=== PATIENT | female | born 1955 | race Caucasian/White ===

== ENCOUNTER 2025-09-29 13:26 | Inpatient (IN) | payer OTHER ==
[~2025-09-29] VITALS: Ht 170.2 cm; Wt 76.3 kg
--- NOTE | ~2025-09-29 | EKG ---
[facility] [address] [facility], [place] [address] Draft EKG completed, results pending confirmation PATIENT NAME: MEHNAZ QUARLES CLAUDIA Electrocardiogram DATE OF : 53 PHYSICIAN: PRELIMINARY REPORT #: [id number] REPORT IS CONFIDENTIAL AND NOT TO BE RELEASED WITHOUT AUTHORIZATION
[~2025-09-29 13:26] MED LIST: SEVOFLURANE 250 ML BTL INH ONE
[2025-09-29 14:03] LABS: MCH 29.3 PG (25.6-32.2); MCHC 32.9 g/dL (32.2-35.5); MCV 89.1 fL (79.4-94.8); RBC 4.40 M/uL (3.93-5.22)
[2025-09-29] MEDS ORDERED: SODIUM CHLORIDE 0.9% 1,000 ML IV ONE (14:15)
[2025-09-29] MEDS ORDERED: HYDROmorphone HCL 1 MG/ML SYR IV PRN (14:15)
[2025-09-29 14:24] LABS: BANDS, MANUAL DIFF 5; LYMPHOCYTES, MANUAL DIFF 3; MONOCYTES, MANUAL DIFF 3; NEUTROPHILS, MANUAL DIFF 89
[2025-09-29 14:29] LABS: ALT (SGPT) 19.0 U/L (14-59); AST (SGOT) 16.0 U/L (15-37); GLOMERULAR FILTRATION RATE,EST 18.0 mL/min (>60); PROTEIN, TOTAL 7.0 g/dL (6.4-8.2); UREA NITROGEN 53.0 mg/dL (7-18)
[2025-09-29] MEDS ORDERED: SODIUM CHLORIDE 0.9% 1,000 ML IV SCH (15:00)
[2025-09-29] MEDS ORDERED: DEXTROSE 5% IV ONE (15:15)
[2025-09-29] MEDS ORDERED: MEROPENEM IV ONE (15:15)
[2025-09-29 15:23] LABS: BLOOD/HGB, URINE SMALL (Negative); KETONE, URINE NEGATIVE (Negative); LEUK ESTERASE, URINE NEGATIVE (negative); NITRITE, URINE NEGATIVE (negative)
[2025-09-29 15:29] LABS: EPITHELIAL CELLS, URINE SQUAMOUS 2+ /lpf (0-1+)
[2025-09-29 15:30] LABS: BACTERIA, URINE 1+ /hpf (negative); CASTS, URINE NONE SEEN \\lpf; CRYSTALS, URINE NONE SEEN (0-1+); REFLEX CULTURE, URINE No (No)
[2025-09-29] MEDS ORDERED: MEROPENEM IV SCH (16:15)
[2025-09-29] MEDS ORDERED: KETOROLAC TROMETHAMINE 30 MG/ML VIAL IV PRN (16:15)
[2025-09-29] MEDS ORDERED: LACTATED RINGER'S 1,000 ML IV SCH (16:15)
[2025-09-29] MEDS ORDERED: DEXTROSE 5% IV SCH (16:15)
[2025-09-29] MEDS ORDERED: MORPHINE SULFATE 10 MG/ML VIAL IV PRN (16:15)
[2025-09-29] MEDS ORDERED: fentaNYL citrate 100 MCG/2 ML VIAL ONE (16:53)
[2025-09-29] MEDS ORDERED: LIDOCAINE HCL 2% 5 ML SDV ONE (16:54)
[2025-09-29] MEDS ORDERED: DEXAMETHASONE SOD PHOS 4 MG/ML VIAL ONE (16:54)
[2025-09-29] MEDS ORDERED: ROCURONIUM BROMIDE 50 MG/5 ML SYR ONE (16:54)
[2025-09-29] MEDS ORDERED: ACETAMINOPHEN 1,000 MG/100 ML VIAL ONE (16:59)
[2025-09-29] MEDS ORDERED: SODIUM CHLORIDE 0.9% 20 ML IV ONE (16:59)
[2025-09-29] MEDS ORDERED: METOPROLOL TARTRATE 5 MG/5 ML VIAL ONE ×2 (17:02)
[2025-09-29] MEDS ORDERED: PHENYLEPHRINE HCL IN 0.9% NACL 1 MG/10 ML SYR ONE (17:25)
[2025-09-29] MEDS ORDERED: VASOPRESSIN 20 UNITS/ML VIAL ONE (17:27)
[2025-09-29] MEDS ORDERED: POTASSIUM CHLORIDE 10 MEQ/100 ML BAG IV SCH ×3 (17:30→21:15)
[2025-09-29] MEDS ORDERED: POTASSIUM CHLORIDE 20 MEQ in DEXTROSE 5% 250 ML IV ONE (17:30)
[2025-09-29] MEDS ORDERED: SUGAMMADEX SODIUM 200 MG/2 ML ML ONE (17:31)
--- NOTE | 2025-09-29 17:57 | HP ---
[facility] [address] [place], [place] [address] Signed ADMISSION DATE: 09/29/2025 REASON FOR ADMISSION: Intra-abdominal abscess with possible perforated appendicitis. 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 She has been injured in her line of work as well. She is accompanied by her . On about September, she began having vague abdominal pain, which worsened and migrated to the lower abdomen. It has worsened and now is in the right lower abdomen. She presented to the emergency room as she has not been able to eat well over the past few days. She had decreased urinary output and has had vomiting. She has had some loose bowel movements, but no blood per rectum. She [facility] in the morning and was referred directly to the emergency room given her symptoms. Evaluation by Dr. Ingram was undertaken, which included clinical examination finding marked tenderness in the lower abdomen. A CT scan which showed multiple fluid and gas filled mildly dilated loops of small bowel without sign of bowel obstruction, gallstones with a somewhat distended gallbladder and probably acutely perforated appendix with multiple small collections of fluid and gas scattered in the right abdomen and pelvis. She was concurrently noted to have elevated white count of 15.1, hematocrit of 39.2, and platelets of 260,000. PAST MEDICAL HISTORY: Notable for abdominal hysterectomy and ovariectomy for endometriosis. She has had right shoulder operation and neck surgery, both related to violent episodes with students. She also has lost a partial bridge on her right mouth also related to her work with violent students. She denies any alcohol use or drug use and does not smoke. SOCIAL HISTORY: She is . She is accompanied by her and works as a [employer] with dysfunctional [employer] students. REVIEW OF SYSTEMS: She denies any shortness of breath or chest pain. Has no general symptoms suggestive of angina. She has no dysphagia or hematuria. PHYSICAL EXAMINATION: GENERAL: A pleasant white woman who does not look systemically toxic despite my Electronically Signed By: MANUEL VIVAS MD 09/29/25 1757 PATIENT NAME: MEHNAZ QUARLES HISTORY AND PHYSICAL DATE OF : 53 REPORT #: [id number] PHYSICIAN: MANUEL VIVAS MD PCP: RONIT LOONEY PAC REPORT IS CONFIDENTIAL AND NOT TO BE RELEASED WITHOUT AUTHORIZATION [facility] [address] [place], [place] [address] Signed concerns upon reviewing her chart. VITAL SIGNS: Temperature is 97.5, pulse 101, blood pressure 118/60, pulse oximetry 100% on room air. NECK: Trachea is midline. There is fullness to the lower neck, but no thyromegaly per se. She has no hoarseness. CHEST: Clear bilaterally. HEART: Regular without murmur. She has a pectus excavatum deformity. ABDOMEN: Nondistended. Rovsing sign is positive. There is marked tenderness at McBurney's point as well. There is no palpable mass. EXTREMITIES: Show no clubbing, cyanosis, or edema. LABORATORY STUDIES: As previously noted, showed a white count of 15.1, hematocrit 39.2, and platelets 260,000. Potassium low at 3.1, creatinine 2.78, bicarb 25, alkaline phosphatase is 93, total protein 7.0, albumin 2.8, globulin 4.2. I reviewed her CT scan. Notable is a somewhat distended gallbladder with large gallstones, but no sign of pericholecystic fluid or thickening of the gallbladder wall. The deformity of the sternum and upper abdomen is noted. In the lower abdomen are areas of fluid collection between bowel loops. In the region of the cecum are inflammatory changes, which are notable. The appendix is markedly dilated and markedly thickened as well. I do not detect a radiodense fecalith. The terminal ileum appears normal. There is some GI contrast locally. An appendicolith is noted on one slice that is radiodense after all. The patient has acute appendicitis, possibly with perforation and interloop fluid collections or abscess. Gallstones are noted without obvious evidence of cholecystitis proper and she has no tenderness in the right upper quadrant at all. Fluid resuscitation has been initiated by Dr. Ingram and in concert with our consultation meropenem 500 mg intravenously has been started. Creatinine is elevated, but was said to have been normal only a month or two ago after physical exam with her primary provider, Dr. García. I can assume that her progressive dehydration, inflammatory issues and so forth have caused a prerenal renal failure and elevated creatinine on that basis. Aggressive fluid resuscitation is underway at this time. A 12-lead EKG has been ordered, though she has no overt evidence of coronary issue at this time. I have recommended laparoscopy with laparoscopic appendectomy and drainage of abdomen if possible. She may require an open operation, we discussed this in great detail. Drains almost certainly will be placed in her situation. Additionally, we discussed the possibility this may not represent appendicitis but rather some other problem for which additional treatment would be needed. As regard to the gallbladder, it is somewhat dilated and has large stones, but does not appear to be the primary problem today. It would be unusual that concurrent cholecystectomy would be undertaken, but whatever is Electronically Signed By: MANUEL VIVAS MD 09/29/25 8438 PATIENT NAME: MEHNAZ QUARLES HISTORY AND PHYSICAL DATE OF : 53 REPORT #: [id number] PHYSICIAN: MANUEL VIVAS MD PCP: RONIT LONOEY PAC REPORT IS CONFIDENTIAL AND NOT TO BE RELEASED WITHOUT AUTHORIZATION [address] [place], [place] [address] Signed causing her problem will be diagnosed and so far as possible. She agrees with this. MD LATASHA Mcbride/MODL /[id number] cc: MD Dr. Juan Jose Akins Copies: BHARGAV GARCÍA MD ~ Electronically Signed By: MANUEL VIVAS MD 09/29/25 1757 PATIENT NAME: MEHNAZ QUARLES HISTORY AND PHYSICAL DATE OF : 53 REPORT #: [id number] PHYSICIAN: MANUEL VIVAS MD PCP: RONIT LOONEY PAC REPORT IS CONFIDENTIAL AND NOT TO BE RELEASED WITHOUT AUTHORIZATION
[2025-09-29 18:13] LABS: BASOPHILS 0.6 % (0.1-1.2); EOSINOPHILS 0.6 % (0.7-5.8); LYMPHOCYTES 3.7 % (19.3-51.7); MCH 29.0 PG (25.6-32.2); MCHC 32.4 g/dL (32.2-35.5); MCV 89.7 fL (79.4-94.8); MONOCYTES 3.4 % (4.7-12.5); NEUTROPHILS 91.3 % (34.0-71.1); RBC 4.27 M/uL (3.93-5.22)
[2025-09-29 18:45] VITALS: BP 102/60
[2025-09-29 18:46] LABS: ALT (SGPT) 16.0 U/L (14-59); AST (SGOT) 15.0 U/L (15-37); GLOMERULAR FILTRATION RATE,EST 23.0 mL/min (>60); PROTEIN, TOTAL 5.7 g/dL (6.4-8.2); TSH, 3RD GENERATION 1.163 uIU/mL (0.358-3.740); UREA NITROGEN 49.0 mg/dL (7-18)
[2025-09-29] MEDS ORDERED: DIGOXIN 500 MCG/2 ML AMP IV ONE ×2 (19:00→23:00)
--- NOTE | 2025-09-29 19:12 | EKG ---
[facility] [address] [facility] [place], [place] [address] Signed Normal sinus rhythm Nonspecific ST abnormality Abnormal ECG No previous ECGs available Confirmed by Donal Moraes DO ([id number]) on 09/29/2025 7:12:33 PM Electronically Signed By: DONAL MORAES DO 09/29/251911 PATIENT NAME: MEHNAZ QUARLES Electrocardiogram DATE OF : 53 PHYSICIAN: DONAL MORAES DO REPORT #: [id number] REPORT IS CONFIDENTIAL AND NOT TO BE RELEASED WITHOUT AUTHORIZATION
[2025-09-29 20:26] VITALS: BP 99/56
[2025-09-29 21:00] VITALS: BP 106/60
[2025-09-29] MEDS ORDERED: FAMOTIDINE 20 MG/ 2 ML VIAL IV SCH ×2 (21:00)
[2025-09-29] MEDS ORDERED: MAGNESIUM SULFATE 2 GM/50 ML BAG IV ONE (21:30)
[2025-09-29] MEDS ORDERED: POTASSIUM CHLORIDE 10 MEQ TABCR PO ONE (21:30)
[2025-09-29 22:00] VITALS: BP 109/62
[2025-09-29 23:00] VITALS: BP 100/59
[2025-09-30] VITALS (19 sets, daily range): BP systolic 92–134; BP diastolic 48–76
[2025-09-30 03:25] LABS: GLOMERULAR FILTRATION RATE,EST 42.0 mL/min (>60); UREA NITROGEN 43.0 mg/dL (7-18)
[2025-09-30] MEDS ORDERED: DEXTROSE 5% IV SCH ×2 (04:00)
[2025-09-30] MEDS ORDERED: MEROPENEM IV SCH ×2 (04:00)
[2025-09-30 06:19] LABS: MCH 28.6 PG (25.6-32.2); MCHC 31.6 g/dL (32.2-35.5); MCV 90.6 fL (79.4-94.8); RBC 3.84 M/uL (3.93-5.22)
[2025-09-30 06:45] LABS: GLOMERULAR FILTRATION RATE,EST 45.0 mL/min (>60); UREA NITROGEN 42.0 mg/dL (7-18)
[2025-09-30 06:55] LABS: BANDS, MANUAL DIFF 4; LYMPHOCYTES, MANUAL DIFF 2; MONOCYTES, MANUAL DIFF 4; NEUTROPHILS, MANUAL DIFF 90
[2025-09-30] MEDS ORDERED: ACETAMINOPHEN 1,000 MG/100 ML VIAL ONE (10:28)
[2025-09-30] MEDS ORDERED: LIDOCAINE HCL 2% 5 ML SDV ONE (10:28)
[2025-09-30] MEDS ORDERED: DEXAMETHASONE SOD PHOS 4 MG/ML VIAL ONE (10:28)
[2025-09-30] MEDS ORDERED: ROCURONIUM BROMIDE 50 MG/5 ML SYR ONE (10:28)
[2025-09-30] MEDS ORDERED: KETAMINE in NS 50 MG/5 ML SYR ONE (10:28)
[2025-09-30] MEDS ORDERED: fentaNYL citrate 100 MCG/2 ML VIAL ONE (10:29)
[2025-09-30] MEDS ORDERED: SODIUM CHLORIDE 0.9% 20 ML IV ONE (10:32)
[2025-09-30] MEDS ORDERED: SODIUM CHLORIDE 0.9% 0 ML IV ONE (10:35)
[2025-09-30] MEDS ORDERED: PHENYLEPHRINE HCL IN 0.9% NACL 1 MG/10 ML SYR ONE (10:44)
[2025-09-30] MEDS ORDERED: IBLOOD GLUCOSE TEST STRIP 1 EA TEST VI PRN (11:45)
[2025-09-30] MEDS ORDERED: NALOXONE HCL 0.4 MG SYR IV PRN (11:45)
[2025-09-30] MEDS ORDERED: fentaNYL citrate 50 MCG/ML SDV IV PRN (11:45)
[2025-09-30] MEDS ORDERED: SUGAMMADEX SODIUM 200 MG/2 ML ML ONE (12:02)
[2025-09-30] MEDS ORDERED: IBUPROFEN 600 MG TAB PO PRN (13:00)
[2025-09-30] MEDS ORDERED: OXYCODONE HCL 5 MG TAB PO PRN (13:00)
[2025-09-30] MEDS ORDERED: ACETAMINOPHEN 500 MG TAB PO PRN (13:00)
[2025-09-30] MEDS ORDERED: SEVOFLURANE 250 ML BTL INH ONE (13:14)
[2025-10-01] VITALS (10 sets, daily range): BP systolic 98–141; BP diastolic 56–71
[2025-10-01] MEDS ORDERED: BACLOFEN10 MG PO (11:18)
[2025-10-01] MEDS ORDERED: HYDROCODON-ACE1 EA10 PO (11:19)
[2025-10-01] MEDS ORDERED: IBUPROFEN400 MG PO (11:20)
[2025-10-01] MEDS ORDERED: LOSARTAN POTAS100 MG PO (11:21)
[2025-10-01] MEDS ORDERED: ESTRADIOL1 MG PO (11:21)
[2025-10-01] MEDS ORDERED: GABAPENTIN300 MG PO (11:22)
[2025-10-01] MEDS ORDERED: XIIDRA1 EACH OU (11:23)
[2025-10-01] MEDS ORDERED: CIPROFLOXACIN 250 MG TAB PO SCH (12:00)
[2025-10-01] MEDS ORDERED: KETOROLAC TROMETHAMINE 15 MG/ML VIAL IV PRN (20:15)
[2025-10-01] MEDS ORDERED: HYDROCODONE/ACETA 5/325 TAB PO PRN (20:15)
[2025-10-01] MEDS ORDERED: FAMOTIDINE 20 MG TAB PO SCH (21:00)
--- NOTE | 2025-10-01 21:45 | OR ---
[facility] [address] [place], [place] [address] Signed DATE OF OPERATION: 09/30/2025 SURGEON: Manuel Vivas MD PREOPERATIVE DIAGNOSES: 1. Recent onset atrial fibrillation with rapid ventricular response (resolved). 2. Multiple intraabdominal and interloop abscesses of abdominal cavity, likely related to perforated appendicitis. 3. Distended gallbladder with stones. POSTOPERATIVE DIAGNOSES: 1. Multiple interloop abscesses. 2. Perforated gangrenous appendicitis, partially retrocecal. 3. Distended, noninflamed gallbladder. PROCEDURES: 1. Laparoscopy with drainage of multiple intraabdominal, interloop abscesses. 2. Laparoscopic appendectomy, prolonged complicated difficult. 3. Peritoneal lavage with placement of pelvic and retrocecal drain. ANESTHESIA: General endotracheal, Moise Soto, WRAPPER COUNTER and local 10 mL of 0.25% Marcaine with epinephrine. INDICATION: This 70-year-old woman presented to the emergency room yesterday with several days of increasing abdominal pain, found to be mildly hypotensive, [place] [address] and quite dehydrated. She had generalized peritonitis. Evaluation by Dr. Tae Booker included a CT scan of the abdomen, which showed multiple intraabdominal abscesses and probable perforated appendicitis. She was given broad-spectrum antibiotic meropenem, fluid resuscitated, and taken to operation yesterday where upon transfer from the stretcher to the bed, she had new onset atrial fibrillation with rapid ventricular response. She did have hypotension associated with despite some rate control, was awaken from her anesthetic and operation abandoned at that time. She has since undergone additional fluid resuscitation, electrolyte administration including magnesium and potassium, continued IV antibiotics and so on. She had continuous monitoring of her rhythm as she had spontaneous conversion to normal sinus rhythm upon cessation of her anesthetic and extubation yesterday. Her evaluation shows Electronically Signed By: MANUEL VIVAS MD 10/01/25 2145 PATIENT NAME: MEHNAZ QUARLES OPERATIVE REPORT DATE OF : 53 REPORT #: [id number] PHYSICIAN: MANUEL VIVAS MD PCP: FRANCISCA LOONEY PAC REPORT IS CONFIDENTIAL AND NOT TO BE RELEASED WITHOUT AUTHORIZATION [facility] [address] [place], [place] [address] Signed no evidence of cardiac ischemia, ongoing arrhythmia, or other problem. The patient is noted additionally to have a distended gallbladder with several large gallstones, though the gallbladder is not thickened. She is admitted at this time to undergo our plan for drainage of intraabdominal abscesses, probable appendectomy and if necessary, cholecystectomy should the gallbladder be proven to be acutely inflamed. The risk of bleeding, infection, recurrent arrhythmia, and other unforeseen complications was reviewed in detail. She understands, wished to proceed. FINDINGS: She suffered no arrhythmia during the course of operation, was hemodynamically stable throughout. The abdomen had multiple interloop abscesses, which were broken down, irrigated and drained. Gram stain and cultures were obtained, which confirmed white cells, gram-negative rods and gram-positive cocci. The gallbladder was distended, but not acutely inflamed. The liver was normal. Purulent material extended along the right paracolic gutter as well. Debris from perforated viscus was noted, which was cleaned up and ultimately was found to have a completely gangrenous appendix with multiple areas of perforation, which was managed by appendectomy as well. Irrigation throughout the abdomen and breakdown of interloop adhesions and loculations was undertaken and a drain placed as well. The operation was somewhat prolonged, complicated, and difficult. DESCRIPTION OF PROCEDURE: The patient was brought to the operating room, given a general endotracheal anesthetic. She had no incidental arrhythmia problem on this occasion. Preoperative antibiotic meropenem had been ongoing. The abdomen was prepared with a chlorhexidine solution and draped sterilely. An infraumbilical incision was made and using an open Lalo cannula technique, pneumoperitoneum was achieved to a level of 14 mmHg of carbon dioxide gas. Intra-abdominal inspection showed multiple interloop fibrinous adhesions of small bowel and some areas of free-flowing purulence in the right paracolic gutter. A 12 mm epigastric port was placed and cannula replaced to that site and single hand manipulation showed interloop abscesses. The Luki tube was attached to the suction device and a sample was taken for Gram stain and culture. The right lower quadrant 5 mm port was placed and with two hand manipulation, dense interloop adhesions were gently freeing them from purulent collections. Initially, the cecum and the inflammatory changes in the right lower quadrant were such that one could not readily identify the cecum itself. Management included identification of the right mid ascending colon, tinea epiploica and following distalward and uncovering the interloop adhesions and abscesses. Irrigation was undertaken liberally throughout. Ultimately, the antimesenteric fat pad of tree could be identified indicative of the terminal ileum and with various manipulations of the colon, a very subtle, but obvious area of necrosis was identified. This was essentially fused and plastered to the retrocecal area and was indicative likely of the origin of the appendix. With various manipulations, the Electronically Signed By: MANUEL VIVAS MD 10/01/25 2145 PATIENT NAME: MEHNAZ QUARLES OPERATIVE REPORT DATE OF : 53 REPORT #: [id number] PHYSICIAN: MANUEL VIVAS MD PCP: FRANCISCA LOONEY PAC REPORT IS CONFIDENTIAL AND NOT TO BE RELEASED WITHOUT AUTHORIZATION [facility] [address] [place], [place] [address] Signed appendiceal orifice could be identified and a window created between it and the cecum. This quite clearly was the origin of the appendix and it was transected with a REINIER stapling device. At this point, elevation of the appendiceal origin could be undertaken, elevated and the mesoappendix followed into the retroperitoneum ultimately identifying a completely gangrenous and ultimately perforated appendix. This was dissected free with all due care ultimately allowing for application of staple line to the surviving mesoappendix. The appendix was placed in an endobag and extracted through the infraumbilical port site. Irrigation was undertaken of the retrocecal area freeing the terminal ileum more fully and with multiple interloop adhesions additionally being broken down so as to avoid postoperative bowel obstruction. Copious irrigation was undertaken. Two 3 L volumes were used ultimately removing fibrinous peel as best could be and breaking down all interloop abscesses and adhesions. Irrigation was undertaken more fully and through the right lower quadrant port site, a 7 mm flat Jeison drain was placed in the upper portion of the right pelvis extending to the retrocecal area. This secured the skin with nylon suture. Irrigation fluid over the liver was suctioned free fully. Examination once again of the gallbladder showed it to be distended, but not acutely inflamed and therefore cholecystectomy was not undertaken at this time. The trocars were removed under direct visualization showing no sign of bleeding. The infraumbilical fascial incision was reapproximated with interrupted 0 Vicryl suture. A 10 mL of 0.25% Marcaine with epinephrine was injected locally. Skin closed with interrupted 3-0 Vicryl. Steri-Strips were applied. The patient was ultimately extubated and transferred to the recovery room in good condition having suffered no complication. Sponge, needle, and instrument counts were reported as correct x3. MD LATASHA Mcbride/MODL /[id number] cc: MD Francisca Salcedo PA-C Copies: TAE BOOKER MD Electronically Signed By: MANUEL VIVAS MD 10/01/25 2145 PATIENT NAME: MEHNAZ QUARLES OPERATIVE REPORT DATE OF : 53 REPORT #: [id number] PHYSICIAN: MANUEL VIVAS MD PCP: FRANCISCA LOONEY PAC REPORT IS CONFIDENTIAL AND NOT TO BE RELEASED WITHOUT AUTHORIZATION [address] [place], [place] [address] Signed FRANCISCA LOONEY Electronically Signed By: MANUEL VIVAS MD 10/01/25 2145 PATIENT NAME: MEHNAZ QUARLES OPERATIVE REPORT DATE OF : 53 REPORT #: [id number] PHYSICIAN: MANUEL VIVAS MD PCP: FRANCISCA LOONEY PAC REPORT IS CONFIDENTIAL AND NOT TO BE RELEASED WITHOUT AUTHORIZATION
--- NOTE | 2025-10-01 21:45 | CONS ---
[facility] [address] [place], [place] [address] Signed DATE OF CONSULTATION: 09/29/2025 TIME: 5:42 p.m. ISSUE: Immediate preop arrhythmia. HISTORY: This 70-year-old white woman presented to the emergency room today with apparent perforated appendicitis with multiple intraabdominal fluid collections. She has been fluid resuscitated with normal saline and ultimately elected Ringer solution treated empirically with meropenem antibiotic. She was noted to have an elevated creatinine to greater than 2.79. Her clinical appearance was not that severe sepsis, particularly though given her findings of peritonitis and CT scan findings of interloop fluid collections with a probable perforated appendicitis. Operation for source control was deemed appropriate. A preoperative 12-lead EKG showed normal sinus rhythm. Potassium was slightly low at 3.1. She has no prior history of cardiac ailment and did have a full cardiac workup prior to shoulder operation last year. Upon presentation to the operating room, she was noted to have atrial fibrillation with rapid ventricular response, heart rate into the 150s. She had reasonably preserved blood pressure. She was initiated on intravenous beta marcus, which slowed her rate to the 120 to 130s and was given a general endotracheal anesthetic. Her heart rhythm appeared to be about the same. Her blood pressure did drop to a systolic of 59 for which vasopressin was administered increasing her blood pressure to 126 and decreasing her heart rate to about 116. Considering the unexpected dysrhythmia, concern was maintained for proceeding with operation; but the operation is needed. It is not related to exsanguinating hemorrhage or anything of that degree and on that basis, decision was made to abandon anesthesia and operation at this time to further evaluate and optimize her hemodynamics anticipating general anesthesia in the near future for definitive operation. Of note, she did have spontaneous conversion, normal sinus rhythm with a heart rate of 89 and a blood pressure of approximately 89 to 99 systolic. She was extubated without problem and in the recovery room, has a normal sinus rhythm of 95, O2 saturation 100% on nasal cannula oxygen, respiratory rate of 22. She denies Electronically Signed By: MANUEL VIVAS MD 10/01/25 2145 PATIENT NAME: MEHNAZ QUARLES CONSULTATION DATE OF : 53 REPORT #: [id number] PHYSICIAN: MANUEL VIVAS MD PCP: RONIT LOONEY PAC REPORT IS CONFIDENTIAL AND NOT TO BE RELEASED WITHOUT AUTHORIZATION [facility] [address] [place], [place] [address] Signed complaints of chest pain at this time. ASSESSMENT: Unexpected onset of tachyarrhythmia (atrial fibrillation with rapid ventricular response) generally responsive to beta blockade, but with decreased blood pressure ultimately improved by vasopressin. PLAN: We will check electrolytes, troponin level, TSH, and consultation will be undertaken with Dr. Odell, hospitalist as her situation is better characterized, electrolytes optimized, and hopefully rhythm stabilized. MD LATASHA Mcbride/DANIELLA /[id number] cc: Tae Booker MD Copies: TAE BOOKER MD ~ Electronically Signed By: MANUEL VIVAS MD 10/01/25 2145 PATIENT NAME: MEHNAZ QUARLES CONSULTATION DATE OF : 53 REPORT #: [id number] PHYSICIAN: MANUEL VIVAS MD PCP: RONIT LOONEY PAC REPORT IS CONFIDENTIAL AND NOT TO BE RELEASED WITHOUT AUTHORIZATION
[2025-10-02 01:07] VITALS: BP 125/71
[2025-10-02 04:34] VITALS: BP 126/68
[2025-10-02 05:46] LABS: BASOPHILS 0.6 % (0.1-1.2); EOSINOPHILS 1.5 % (0.7-5.8); LYMPHOCYTES 10.9 % (19.3-51.7); MCH 28.9 PG (25.6-32.2); MCHC 32.2 g/dL (32.2-35.5); MCV 89.7 fL (79.4-94.8); MONOCYTES 7.5 % (4.7-12.5); NEUTROPHILS 76.7 % (34.0-71.1); RBC 4.19 M/uL (3.93-5.22)
[2025-10-02 09:59] VITALS: BP 143/65
[2025-10-02] MEDS ORDERED: METRONIDAZOLE250 MG PO (10:06)
[2025-10-02] MEDS ORDERED: HYDROCODON-ACE1 EA10 PO (10:06)
[2025-10-02] MEDS ORDERED: CIPROFLOXACIN250 MG PO (10:06)
[2025-10-02] MEDS ORDERED: IBUPROFEN600 MG PO (10:06)
[2025-10-02 10:54] VITALS: BP 139/69
[2025-10-02 10:58] VITALS: BP 139/69
--- NOTE | 2025-10-02 13:14 | DS ---
[facility] [address] [place], [place] [address] Signed ADMISSION DATE: 09/29/2025 DISCHARGE DATE: 10/02/2025 REASON FOR ADMISSION: Multiple intra-abdominal abscesses, likely related to perforated appendicitis. HISTORY OF PRESENT ILLNESS: This 70-year-old woman presented to the emergency room with several days of increasing abdominal pain, found to be mildly hypotensive, febrile with an elevated white count of 15,000 and quite dehydrated. She had generalized peritonitis. Evaluation by Dr. Tae Ingram include CT scan of the abdomen showing multiple intra-abdominal abscesses and probable perforated appendicitis. She was admitted for further evaluation and care. PERTINENT PHYSICAL EXAMINATION: GENERAL: Showed a pleasant white woman, who was not systemically toxic in appearance initially. NECK: Trachea was midline. CHEST: Clear. HEART: Regular without murmur. ABDOMEN: Markedly tender throughout. LABORATORY STUDIES: White count was 15,000. EKG was normal sinus rhythm. HOSPITAL COURSE: The patient was fluid resuscitated, given broad-spectrum antibiotic meropenem and taken to operation planning for drainage of abscesses and probable appendectomy. At the time of induction of anesthesia, she had development of atrial fibrillation with rapid ventricular response. This was initially managed with a beta-marcus, but did cause some hypotension. Pressor agents were used, which raised the blood pressure (phenylephrine less so or vasopressin definitely). Her heart rate remained in the 120s. Given these findings, it was deemed advisable to abandon the idea of operation for further stabilization. Upon cessation of her general anesthesia, she returned to a normal sinus rhythm. She was taken to the Intensive Care Unit for further evaluation. Her electrolytes were found to be reasonably normal though potassium was slightly low at 3.1 and it was repleted, additional magnesium was given. She had no further dysrhythmia. Consultation with Dr. Odell, hospitalist afirmed all these findings and troponin level was not abnormal and she showed no evidence of ischemic heart disease. The following day, after additional fluids and so forth, she did go to operation on September 30, 2025. Laparoscopy demonstrated multiple interloop abdominal abscesses, Electronically Signed By: MANUEL VIVAS MD 10/02/25 1314 PATIENT NAME: MEHNAZ QUARLES DISCHARGE SUMMARY DATE OF : 53 REPORT #: [id number] PHYSICIAN: MANUEL VIVAS MD PCP: RONIT LOONEY PAC REPORT IS CONFIDENTIAL AND NOT TO BE RELEASED WITHOUT AUTHORIZATION [facility] [address] [place], [place] [address] Signed which were all broken down and aspirated and Gram stain and cultures obtained. Found was completely gangrenous and nearly disintegrated appendix, which was excised completely. Peritoneal lavage and clearance of all abscessed areas was undertaken as well as freeing of the small bowel so as to avoid postoperative bowel obstruction. A drain was left in place. She was maintained on broad-spectrum antibiotic initially and converted to oral antibiotic, Cipro and Flagyl. Her drain became crystal clear, but was left in place. At the time of discharge, she is ambulating well, tolerating a regular diet, has minimal incisional pain. Drainage is clear, though her white count remains elevated at 16,000. Our plan is to see her back in a week or so likely for drain removal. She will be discharged to home with oral antibiotics. She should lift no more than 20 pounds for the next two weeks and should not work until that time. DISCHARGE MEDICATIONS: Will include. 1. Cipro 750 mg one tab b.i.d. #14, no refill. 2. Flagyl 250 mg p.o. t.i.d. #21, no refill. 3. Ibuprofen 600 mg q.6 hours p.r.n. pain #30, refill 1. 4. Hydrocodone/Tylenol 5/325 1 to 2 p.o. q.6 hours as needed for pain, #10. She will continue her usual medications of baclofen 10 mg p.o. t.i.d. as needed, ibuprofen as previously noted, losartan 100 mg p.o. daily, estradiol 1 mg daily, gabapentin 300 mg b.i.d. and Xiidra eye drops each eye b.i.d. DISCHARGE DIAGNOSES: 1. Multiple intra-abdominal abscesses related to perforated appendicitis, status post laparoscopic drainage of intra-abdominal abscesses. 2. Incidental laparoscopic appendectomy. 3. History of right shoulder operation in recovery. 4. Hypertension. 5. Acute onset atrial fibrillation with rapid ventricular response with resolution (likely infectious related). Manuel Vivas MD /LINDAL /[id number] Electronically Signed By: MANUEL VIVAS MD 10/02/25 1314 PATIENT NAME: MEHNAZ QUARLES DISCHARGE SUMMARY DATE OF : 53 REPORT #: [id number] PHYSICIAN: MANUEL VIVAS MD PCP: RONIT LOONEY PAC REPORT IS CONFIDENTIAL AND NOT TO BE RELEASED WITHOUT AUTHORIZATION [place] [phone] Signed cc: LORELEI Desir MD Copies: RONIT LOONEY WILLIAM S MD ~ Electronically Signed By: MANUEL VIVAS MD 10/02/25 1314 PATIENT NAME: MEHNAZ QUARLES DISCHARGE SUMMARY DATE OF : 53 REPORT #: [id number] PHYSICIAN: MANUEL VIVAS MD PCP: RONIT LOONEY REPORT IS CONFIDENTIAL AND NOT TO BE RELEASED WITHOUT AUTHORIZATION
--- NOTE | 2025-10-05 18:54 | EKG ---
[facility] [address] [facility] [place] [address] Signed Atrial fibrillation with rapid ventricular response Nonspecific ST and T wave abnormality Abnormal ECG When compared with ECG of 29-SEP-2025 17:11, Previous ECG has undetermined rhythm, needs review Confirmed by Latisha Harrington MD () on 10/05/2025 6:54:09 PM Electronically Signed By: LATISHA HARRINGTON MD 10/05/25 1854 PATIENT NAME: MEHNAZ QUARLES Electrocardiogram DATE OF : 53 PHYSICIAN: LATISHA HARRINGTON MD REPORT #: [id number] REPORT IS CONFIDENTIAL AND NOT TO BE RELEASED WITHOUT AUTHORIZATION
[2025-10-09] MEDS ORDERED: METRONIDAZOLE250 MG PO (11:51)
[2025-10-09] MEDS ORDERED: [UNRECOGNIZED DRUG - OTHER] PO (11:53)
== END 2025-10-02 11:30 | disposition home or self-care (01) | DRG 398 ==
LOC: ED 13:26 → CCU 16:08 → MS 16:08 → CCU 18:38 → MS 09-30 18:25
PROVIDERS: Emergency Medicine; ADMIT Surgery; ATTEND Surgery
PROC: 3E03329 Introduction of Other Anti-infective into Peripheral Vein, Percutaneous Approach (ICD-10-PCS; 2025-09-29)
PROC: 0DTJ4ZZ Resection of Appendix, Percutaneous Endoscopic Approach (ICD-10-PCS; principal; 2025-09-30 10:12)
DX: K35.33 Acute appendicitis with perforation, localized peritonitis, and gangrene, with abscess (principal); N17.9 Acute kidney failure, unspecified; I48.91 Unspecified atrial fibrillation; I10 Essential (primary) hypertension; Z98.890 Other specified postprocedural states; Z90.710 Acquired absence of both cervix and uterus; Z79.899 Other long term (current) drug therapy
CPT/HCPCS: 00840; 36415; 74177; 80048; 80053; 81001; 83690; 83735; 84443; 84484; 85025; 87070; 87075; 87088; 87205; 88304; 93005; 93010; 94762; 96374; 96375; 99285-25; A9270; J0131; J0165; J1100; J1171; J1885; J2003; J2185; J2270; J2405; J2704; J3010; J3475; J3480; J3490; J7030; J7121; Q9967